=== PATIENT | male | born 1980 | race African-American/Black ===

== ENCOUNTER 2024-11-26 08:28 | Emergency (ER) | payer BC, MEDICAID ==
[~2024-11-26] VITALS: Ht 172.7 cm; Wt 68.0 kg
[2024-11-26 08:34] VITALS: O2SAT 100
[2024-11-26] MEDS: KETOROLAC 15MG/ML VIAL IM ONE (09:12)
[2024-11-26] MEDS: ACETAMINOPHEN 500MG TABLET PO ONE (09:16)
[2024-11-26] MEDS: LIDOCAINE 5% PATCH TOP SCH (09:16)
[2024-11-26] MEDS ORDERED: CYCL10TA21 MT (09:53)
[2024-11-26 10:47] VITALS: BP 144/79; PULSE 61; RESP 18; TEMP 37.1; O2SAT 100
== END 2024-11-26 10:49 | disposition home or self-care (01) ==
LOC: ER 08:28
DX: M54.50 Low back pain, unspecified (principal)
CPT/HCPCS: 96372; 99283; J1885; Z7610